=== PATIENT | female | born 1980 | race Two or more races ===

== ENCOUNTER 2017-09-18 13:15 | Emergency (ER) | payer OTHER ==
[~2017-09-18] VITALS: Ht 162.6 cm; Wt 76.2 kg
[~2017-09-18 13:15] MED LIST: AMOXIL250 MG ORAL
[2017-09-18 13:21] VITALS: BP 125/79
[2017-09-18] MEDS ORDERED: NKM (13:27)
[2017-09-18] MEDS ORDERED: Albuterol/Ipratropium 3ml neb HHN ONE (14:15)
[2017-09-18] MEDS ORDERED: ACYCLOVIR800 MG ORAL (14:32)
[2017-09-18] MEDS ORDERED: ALBUTEROL SULF8.5 GM INH (14:32)
[2017-09-18] MEDS ORDERED: ADULT WAL-100 MG/5 M ORAL (14:32)
[2017-09-18 14:57] VITALS: BP 120/74
--- NOTE | 2017-09-19 14:54 | Diagnostic Imaging Report ---
Indication: Dyspnea Comparison: None A single view chest radiograph was obtained. Findings: Cardiomediastinal appearance is within normal limits for age. Pulmonary vascularity is appropriate. The diaphragmatic contour is smooth and costophrenic angles are sharp. No pleural effusions are identified. The bones are unremarkable. Impression: No acute findings
--- NOTE | 2017-09-22 07:27 | Emergency Room Report ---
History of Present Illness General Chief Complaint: Upper Respiratory Illness Source: Patient, Significant Other Present Illness HPI Patient is a 37-year-old female presented after increased cough and difficulty breathing. Patient gradual onset of symptoms. Patient was noted to have nonproductive cough. She has a contacts at home. Patient stated that she was breast-feeding. She had not been vomiting. She denied any current fever. She been sick for several days. Allergies: Coded Allergies: No Known Allergies (Unverified , 10/29/13) Patient History Past Medical History: see triage record Last Menstrual Period: February 2017. Now: No : 5 Para: 5 Reviewed Nursing Documentation: PMH: Agreed, PSxH: Agreed Nursing Documentation-PMH Past Medical History: No History, Except For Review of Systems All Other Systems: negative except mentioned in HPI Physical Exam Vital Signs Date Time Temp Pulse Resp B/P (MAP) Pulse Ox O2 Delivery O2 Flow Rate FiO2 09/18/17 13:21 98.4 82 21 125/79 99 Room Air General Appearance: well appearing, no apparent distress, alert, GCS 15, non- toxic Head: normocephalic, atraumatic ENT: hearing grossly normal, normal voice, other - lip vesicle to lower lip at [place] border Neck: full range of motion, supple Respiratory: no respiratory distress, speaking full sentences Cardiovascular #1: normal inspection, no edema, no JVD Musculoskeletal: no calf tenderness Neurologic: normal gait Psychiatric: mood/affect normal Skin: no rash Medical Decision Making Diagnostic Impression: Primary Impression: Viral respiratory infection ER Course Patient presented for cough. Differential diagnosis included but was not limited to bronchitis, pneumonia, pulmonary embolism, pericarditis, asthma, foreign body. Patient's benign exam and does not appear to require any laboratory testing at this time.A chest x-ray showed no evidence of pneumonia. Patient appears to have a viral respiratory infection. She presented after Tamiflu to be indicated. The patient is advised to follow up with primary care doctor in 1-2 days. Patient is advised to return if any worsening condition or if any changes in status that are concerning. This report is dictated with [employer] aquatic life [employer] software which may occasionally lead to discrepancies related to use of this software. Chest X-Ray Diagnostic Results Chest X-Ray Diagnostic Results : Chest X-Ray Ordered: Yes # of Views/Limited/Complete: 1 View Indication: Shortness of Breath EP Interpretation: No Impression: No acute disease Electronically Signed by: Electronically signed by Dr. Everett Acevedo M.D. Last Vital Signs Date Time Temp Pulse Resp B/P (MAP) Pulse Ox O2 Delivery O2 Flow Rate FiO2 09/18/17 14:57 98.4 78 16 120/74 99 Room Air Status: improved Disposition: HOME, SELF-CARE Condition: Stable Scripts Albuterol Sulfate* (ALBUTEROL SULFATE MDI*) 8.5 Gm Hfa.aer.ad 2 PUFF INH Q6H, #1 EA 0 Refills Prov: Everett Acevedo 09/18/17 Guaifenesin* (ADULT WAL-TUSSIN*) 100 Mg/5 Ml Liquid 10 ML ORAL Q4H, #120 ML Prov: Everett Acevedo 09/18/17 Acyclovir* (ZOVIRAX*) 800 Mg Tablet 800 MG ORAL FIVE TIMES A DAY, #35 TAB Prov: Everett Acevedo 09/18/17 Patient Instructions: Upper Respiratory Infection, Adult Everett Acevedo Sep 22, 2017 07:27
== END 2017-09-18 14:59 | disposition home or self-care (01) ==
LOC: EMR 13:40
DX: J06.9 Acute upper respiratory infection, unspecified (principal); B97.89 Other viral agents as the cause of diseases classified elsewhere
CPT/HCPCS: 71010; 94640; 94664; 99283; J7620